=== PATIENT | male | born 1940 | race Caucasian/White ===

== ENCOUNTER → 2016-02-14 | Outpatient (CLI) | payer MEDICARE ==
[~2016-02-14] MED LIST: PRED10PA PO; PRED20 PO; PRIN5TAB PO; TRIA50 PO
[2016-02-14 09:40] LABS: BLOOD, URINE NEG (NEG); GLUCOSE,URINE NEG (NEG); KETONE, URINE NEG (NEG); NITRITE,URINE NEG (NEG); PH, URINE 5.5 (5.0-8.5); URINE COLOR YELLOW (YELLW/STRAW)
[2016-02-14 09:42] LABS: BASOPHIL % 0.6 % (0.0-2.0); EOSINOPHIL # 0.1 TH/MM3 (0-0.4); EOSINOPHIL % 1.5 % (0.0-4.0); HEMATOCRIT 44.8 % (39.0-51.0); HEMO FLAGS DIFF FINAL; LYMPH % 25.9 % (9.0-44.0); LYMPHOCYTE # 1.7 TH/MM3 (1.0-4.8); MEAN CORPUSCULAR HEMOGLOBIN 30.2 PG (27.0-34.0); MEAN CORPUSCULAR HGB CONC 34.3 % (32.0-36.0); MONO % 11.1 % (0.0-8.0); NEUT % 60.9 % (16.0-70.0); PLATELET COUNT 288 TH/MM3 (150-450); RED BLOOD COUNT 5.09 MIL/MM3 (4.50-5.90); RED CELL DISTRIBUTION WIDTH 12.7 % (11.6-17.2); WHITE BLOOD COUNT 6.6 TH/MM3 (4.0-11.0)
[2016-02-14 10:14] LABS: ALKALINE PHOSPHATASE 63 U/L (45-117); ALT (GPT) 22 U/L (12-78); ANION GAP 7 MEQ/L (5-15); AST (GOT) 12 U/L (15-37); BICARBONATE 28.1 MEQ/L (21.0-32.0); BLOOD UREA NITROGEN 20 MG/DL (7-18); CHLORIDE 102 MEQ/L (98-107); GLOMERULAR FILTRATION RATE 63 ML/MIN (>89); GLUCOSE,FASTING 92 MG/DL (74-99); HDL CHOLESTEROL 48.9 MG/DL (40.0-60.0); LDL CHOLESTEROL 121 MG/DL (0-99); POTASSIUM 4.3 MEQ/L (3.5-5.1); SODIUM (NA) 137 MEQ/L (136-145); TOTAL BILIRUBIN ADULT 0.9 MG/DL (0.2-1.0)
== END ==
LOC: PLAB 07:02
DX: I10 Essential (primary) hypertension (principal); E78.00 Pure hypercholesterolemia, unspecified
CPT/HCPCS: 36415; 80053; 80061; 81001; 84443; 85025

== ENCOUNTER → 2016-08-16 | Outpatient (CLI) | payer MEDICARE ==
[2016-08-16 09:06] LABS: BLOOD, URINE NEG (NEG); GLUCOSE,URINE NEG (NEG); KETONE, URINE NEG (NEG); NITRITE,URINE NEG (NEG); URINE COLOR YELLOW (YELLW/STRAW)
[2016-08-16 09:14] LABS: AUTOMATED NEUTROPHIL # 4.3 TH/MM3 (1.8-7.7); BASOPHIL % 0.5 % (0.0-2.0); EOSINOPHIL # 0.2 TH/MM3 (0-0.4); EOSINOPHIL % 2.3 % (0.0-4.0); HEMATOCRIT 44.3 % (39.0-51.0); HEMO FLAGS DIFF FINAL; LYMPH % 25.4 % (9.0-44.0); LYMPHOCYTE # 1.8 TH/MM3 (1.0-4.8); MEAN CELL VOLUME 89.9 FL (80.0-100.0); MEAN CORPUSCULAR HEMOGLOBIN 30.3 PG (27.0-34.0); MEAN CORPUSCULAR HGB CONC 33.6 % (32.0-36.0); MONO % 10.4 % (0.0-8.0); NEUT % 61.4 % (16.0-70.0); PLATELET COUNT 259 TH/MM3 (150-450); RED BLOOD COUNT 4.93 MIL/MM3 (4.50-5.90); RED CELL DISTRIBUTION WIDTH 12.9 % (11.6-17.2)
[2016-08-16 09:36] LABS: ANION GAP 7 MEQ/L (5-15); AST (GOT) 13 U/L (15-37); BICARBONATE 26.8 MEQ/L (21.0-32.0); BLOOD UREA NITROGEN 26 MG/DL (7-18); CHLORIDE 103 MEQ/L (98-107); GLOMERULAR FILTRATION RATE 73 ML/MIN (>89); GLUCOSE,FASTING 88 MG/DL (74-99); POTASSIUM 3.9 MEQ/L (3.5-5.1); SODIUM (NA) 137 MEQ/L (136-145)
[2016-08-16 09:48] LABS: ALKALINE PHOSPHATASE 67 U/L (45-117); ALT (GPT) 21 U/L (12-78); HDL CHOLESTEROL 50.9 MG/DL (40.0-60.0); LDL CHOLESTEROL 133 MG/DL (0-99)
== END ==
LOC: PLAB 07:42
DX: I10 Essential (primary) hypertension (principal)
CPT/HCPCS: 36415; 80053; 80061; 81001; 84443; 85025

== ENCOUNTER → 2017-03-26 | Outpatient (CLI) | payer MEDICARE ==
[2017-03-26 09:37] LABS: AST (GOT) 14 U/L (15-37); BICARBONATE 26.7 MEQ/L (21.0-32.0); BLOOD UREA NITROGEN 26 MG/DL (7-18); CALCIUM 9.1 MG/DL (8.5-10.1); CHLORIDE 103 MEQ/L (98-107); GLOMERULAR FILTRATION RATE 59 ML/MIN (>89); GLUCOSE,FASTING 92 MG/DL (74-99); SODIUM (NA) 136 MEQ/L (136-145)
[2017-03-26 09:39] LABS: ALT (GPT) 22 U/L (12-78); CHOLESTEROL 200 MG/DL (120-200); TRIGLYCERIDES 89 MG/DL (42-150)
[2017-03-26 09:43] LABS: AUTOMATED NEUTROPHIL # 4.1 TH/MM3 (1.8-7.7); BASOPHIL # 0.1 TH/MM3 (0-0.2); BASOPHIL % 0.8 % (0.0-2.0); BILIRUBIN, URINE NEG (NEG); BLOOD, URINE NEG (NEG); EOSINOPHIL # 0.2 TH/MM3 (0-0.4); EOSINOPHIL % 2.3 % (0.0-4.0); GLUCOSE,URINE NEG (NEG); HEMATOCRIT 44.4 % (39.0-51.0); HEMOGLOBIN 15.5 GM/DL (13.0-17.0); KETONE, URINE NEG (NEG); LYMPH % 27.5 % (9.0-44.0); LYMPHOCYTE # 1.9 TH/MM3 (1.0-4.8); MEAN CELL VOLUME 90.2 FL (80.0-100.0); MEAN CORPUSCULAR HEMOGLOBIN 31.6 PG (27.0-34.0); MEAN PLATELET VOLUME 6.9 FL (7.0-11.0); MONO % 9.7 % (0.0-8.0); MONOCYTE # 0.7 TH/MM3 (0-0.9); NEUT % 59.7 % (16.0-70.0); NITRITE,URINE NEG (NEG); PH, URINE 6.5 (5.0-8.5); PLATELET COUNT 298 TH/MM3 (150-450); RED BLOOD COUNT 4.92 MIL/MM3 (4.50-5.90); RED CELL DISTRIBUTION WIDTH 13.3 % (11.6-17.2); SQUAMOUS EPITHELIAL CELL URINE <1 /hpf (0-5); URINE COLOR YELLOW (YELLW/STRAW); URINE LEUKOCYTE ESTERASE NEG (NEG); WHITE BLOOD COUNT 6.9 TH/MM3 (4.0-11.0)
[2017-03-26 09:49] LABS: ALKALINE PHOSPHATASE 59 U/L (45-117); HDL CHOLESTEROL 45.4 MG/DL (40.0-60.0); LDL CHOLESTEROL 137 MG/DL (0-99); TOTAL BILIRUBIN ADULT 0.8 MG/DL (0.2-1.0); TOTAL PROTEIN 7.9 GM/DL (6.4-8.2)
== END ==
LOC: PLAB 06:53
DX: I10 Essential (primary) hypertension (principal)
CPT/HCPCS: 36415; 80053; 80061; 81001; 84443; 85025